=== PATIENT | female | born 1935 | race Caucasian/White ===

== ENCOUNTER → 2018-04-27 | Outpatient (CLI) | payer MEDICARE, OTHER | END | disposition home or self-care (01) | LOC: MRI 09:27 | DX: I66.02 Occlusion and stenosis of left middle cerebral artery (principal); I65.23 Occlusion and stenosis of bilateral carotid arteries; I10 Essential (primary) hypertension | CPT/HCPCS: 70544; 70551; 93880 ==

== ENCOUNTER → 2018-05-06 | Outpatient (CLI) | payer MEDICARE, OTHER ==
[2016-10-26 11:00] VITALS: BP 212/84
[~2018-05-06] MED LIST: ALPR0.25 PO; DONE10TA61 PO; HYDR-971 PO; HYDR12.58 PO; MECL25TA3 PO; MEMA10TA PO; METO-239 PO; MIRT30TA PO; PERFLUTREN PROTEIN-A MICROSPHR 0.22 MG/ML 3 ML VIAL. IV PRN; SULF1TAB24 PO
--- NOTE | 2018-05-06 13:28 | CARD ---
MR#: [id number] Date of Study: 05/06/2018 Ordering Physician: BRIAN COATES, Referring Physician: BRIAN COATES Tech: Caryl Betancur RDCS APPROVED REPORT EXAM: Two-dimensional and M-mode echocardiogram with Doppler and color Doppler. Other Information Quality : Good INDICATION Amaurosis Fujax 2D DIMENSIONS RVDd2.3 (2.9-3.5cm)Left Atrium(2D)3.5 (1.6-4.0cm) IVSd0.9 (0.7-1.1cm)Aortic Root(2D)2.9 (2.0-3.7cm) LVDd4.6 (3.9-5.9cm)LVOT Diameter2.0 (1.8-2.4cm) PWd0.9 (0.7-1.1cm)LVDs3.1 (2.5-4.0cm) FS (%) 33.4 %SV61.0 ml LVEF(%)62.2 (>50%) Aortic Valve AoV Peak Quan.121.4cm/sAoV VTI25.1cm AO Peak GR.5.9mmHgLVOT VTI 18.92cm AO Mean GR.3mmHgAVA (VTI)2.35cm2 Mitral Valve MV E Dlgvspog60.9cm/sMV DECEL [id number] MV A Eevmalgb14.4cm/sE/A Ratio0.8 TDI Lateral E' P. V8.43cm/sMedial E' P. V5.60cm/s E/Lateral E'8.3E/Medial E'12.5 Tricuspid Valve TR P. Oihbylpc879bf/sRAP [id number] TR Peak Gr.11vrUwWVAM03wiFp Pulmonary Vein S1 Qoxbmudt60.5cm/sS2 Hvqzjyck29.75cm/s D2 Cezwasff79.7cm/s LEFT VENTRICLE The left ventricle is normal size. There is normal left ventricular wall thickness. The left ventricu lar systolic function is normal. The Ejection Fraction is 60-65%. There is normal LV segmental wall m otion. Transmitral Doppler flow pattern is Grade I-abnormal relaxation pattern. RIGHT VENTRICLE The right ventricle is normal size. The right ventricular systolic function is normal. ATRIA The left atrium size is normal. The right atrium size is normal. The interatrial septum is intact wit h no evidence for an atrial septal defect or patent foramen ovale as noted on 2-D or Doppler imaging. AORTIC VALVE The aortic valve is calcified but opens well. Doppler and Color Flow revealed no significant aortic r egurgitation. There is no significant aortic valvular stenosis. MITRAL VALVE The mitral valve is calcified but opens well. There is no evidence of mitral valve prolapse. There is no mitral valve stenosis. Doppler and Color-flow revealed trace mitral regurgitation. TRICUSPID VALVE The tricuspid valve is normal in structure and function. Doppler and Color Flow revealed trace tricus pid regurgitation. There is mild pulmonary hypertension. The PA pressure was estimated at 34 mmHg. Th ere is no tricuspid valve stenosis. PULMONIC VALVE The pulmonary valve is normal in structure and function. Doppler and Color Flow revealed trace to mil d pulmonic valvular regurgitation. There is no pulmonic valvular stenosis. GREAT VESSELS The aortic root is normal in size. The ascending aorta is normal in size. The IVC is normal in size a nd collapses >50% with inspiration. PERICARDIAL EFFUSION There is no evidence of significant pericardial effusion. Critical Notification Critical Value: No <Conclusion> The left ventricular systolic function is normal. The Ejection Fraction is 60-65%. There is normal LV segmental wall motion. Transmitral Doppler flow pattern is Grade I-abnormal relaxation pattern. Trace mitral regurgitation. Trace tricuspid regurgitation. The PA pressure was estimated at 34 mmHg. There is no evidence of significant pericardial effusion. Signed by : Don Becerra, Electronically Approved : 05/06/2018 13:26:39
== END | disposition home or self-care (01) ==
LOC: ECHO 12:47
PROVIDERS: ATTEND Family Medicine
DX: G45.3 Amaurosis fugax (principal); I10 Essential (primary) hypertension
CPT/HCPCS: 93306

== ENCOUNTER → 2019-05-26 | Outpatient (CLI) | payer MEDICARE, OTHER ==
[2016-10-26 11:00] VITALS: BP 212/84
[~2019-05-26] MED LIST changes: +HYDR-3164 PO; -HYDR-971 PO; -PERFLUTREN PROTEIN-A MICROSPHR 0.22 MG/ML 3 ML VIAL. IV PRN
--- NOTE | 2019-05-27 21:22 | KCIC ---
CT scan of the chest without contrast 05/26/2019 CLINICAL HISTORY: Chronic cough. Right breast cancer. TECHNIQUE: Unenhanced, contiguous, 5 mm axial sections were obtained through the chest. One or more of the following individualized dose reduction techniques were utilized for this study: 1. Automated exposure control. 2. Adjustment of the mA and/or kV according to patient size. 3. Use of iterative reconstruction technique. FINDINGS: Comparison study is dated 11/13/2015. The patient is post right mastectomy. Atherosclerotic calcification of the thoracic aorta and its branches is noted. The thoracic aorta is tortuous but tapers normally. Calcified right hilar and mediastinal lymph nodes are seen. The heart is mildly enlarged. No axillary, hilar or mediastinal lymphadenopathy is seen. Small calcified granulomas are seen involving the right upper lobe. Multiple irregular nodular and masslike opacities are seen scattered throughout both lungs which are new since the previous examination. These are concerning for pulmonary metastasis. These measure in size from 2 mm to 1.7 cm in size. Minimal dependent subsegmental atelectasis is seen involving both lower lobes. No pneumothorax or pleural effusion is seen. Areas of scarring are seen involving the medial apices of both lungs. Images through the abdomen demonstrate low-attenuation lesions throughout the liver consistent with hepatic cysts. These measure 3 mm to 7 cm in size. Atherosclerotic calcification of the abdominal aorta is seen. Degenerative changes are seen involving the thoracic spine. IMPRESSION: Multiple nodular and masslike opacities are seen scattered throughout both lungs concerning for pulmonary metastasis. Electronically signed by: Samir Underwood MD (05/27/2019 9:20 PM) [facility]
== END | disposition home or self-care (01) ==
LOC: KCIC CT 11:27
PROVIDERS: ATTEND Family Medicine
DX: J84.10 Pulmonary fibrosis, unspecified (principal); I11.9 Hypertensive heart disease without heart failure; I70.0 Atherosclerosis of aorta; J98.11 Atelectasis; K76.9 Liver disease, unspecified; I89.8 Other specified noninfective disorders of lymphatic vessels and lymph nodes; M47.814 Spondylosis without myelopathy or radiculopathy, thoracic region; Z90.89 Acquired absence of other organs
CPT/HCPCS: 71250